=== PATIENT | male | born 1995 | race African-American/Black ===

== ENCOUNTER 2019-07-22 22:34 | Emergency (ER) | payer SELFPAY ==
[2019-07-22] MEDS ORDERED: Lidocaine 1% (PF) 30 ML VIAL ONE (22:48)
[2019-07-22] MEDS ORDERED: Adacel (T-DAP) 0.5 ML SYRINGE ONE (23:10)
[2019-07-22] MEDS ORDERED: Bacitracin 1 PK ONE (23:10)
== END 2019-07-22 23:17 | disposition home or self-care (01) ==
LOC: ERS 22:34
DX: S61.211A Laceration without foreign body of left index finger without damage to nail, initial encounter (principal); S61.012A Laceration without foreign body of left thumb without damage to nail, initial encounter; F32.9 Major depressive disorder, single episode, unspecified; F17.220 Nicotine dependence, chewing tobacco, uncomplicated; Z23 Encounter for immunization; W26.0XXA Contact with knife, initial encounter; Y99.0 Civilian activity done for income or pay
CPT/HCPCS: 12001; 90471; 90715; J2001

== ENCOUNTER 2020-10-22 12:18 | Emergency (ER) | payer SELFPAY ==
[2020-10-22 21:12] LABS: SARS-CoV-2 PCR by NAA Not Detected (NotDetected)
== END 2020-10-22 16:52 | disposition home or self-care (01) ==
LOC: ERS 12:18
DX: K08.89 Other specified disorders of teeth and supporting structures (principal); F17.220 Nicotine dependence, chewing tobacco, uncomplicated; Z20.822 Contact with and (suspected) exposure to COVID-19
CPT/HCPCS: 87635; 99283; U0003; U0005

== ENCOUNTER 2021-07-13 20:51 | Emergency (ER) | payer SELFPAY ==
[2021-07-14 16:51] LABS: SARS-CoV-2 PCR by NAA Not Detected (NotDetected)
== END 2021-07-13 21:19 | disposition home or self-care (01) ==
LOC: ERS 20:51
DX: R05.9 Cough, unspecified (principal); F17.210 Nicotine dependence, cigarettes, uncomplicated; Z20.822 Contact with and (suspected) exposure to COVID-19
CPT/HCPCS: 99283; U0003; U0005

== ENCOUNTER 2023-08-15 17:16 | Emergency (ER) | payer SELFPAY ==
[2023-08-15] MEDS ORDERED: Lidocaine 1% PF 5 ML VIAL ONE (18:38)
[2023-08-15] MEDS ORDERED: Bacitracin 1 PK ONE (20:15)
== END 2023-08-15 20:22 | disposition home or self-care (01) ==
LOC: ERS 17:16
DX: S61.211A Laceration without foreign body of left index finger without damage to nail, initial encounter (principal); F17.210 Nicotine dependence, cigarettes, uncomplicated; W22.8XXA Striking against or struck by other objects, initial encounter
CPT/HCPCS: 12001; 99283

== ENCOUNTER 2023-12-17 12:17 | Emergency (ER) | payer SELFPAY ==
[2023-12-17] MEDS ORDERED: Ibuprofen 200 MG TAB ONE (12:37)
[2023-12-17] MEDS ORDERED: Ondansetron ODT 4 MG TAB ONE (12:37)
[2023-12-17] MEDS ORDERED: Dexamethasone 10 MG/ML VIAL ONE (12:37)
[2023-12-17 13:16] LABS: Influenza A by NAA Not Detected (NotDetected); Influenza B by NAA Not Detected (NotDetected); SARS-CoV-2 NAA Rapid Test Not Detected (NotDetected)
== END 2023-12-17 13:29 | disposition home or self-care (01) ==
LOC: ERS 12:17
DX: B34.9 Viral infection, unspecified (principal); R11.2 Nausea with vomiting, unspecified; F17.210 Nicotine dependence, cigarettes, uncomplicated
CPT/HCPCS: 71045; J1100; Q0162